=== PATIENT | male | born 1990 | race Caucasian/White ===

== ENCOUNTER 2018-02-09 08:58 | Emergency (ER) | payer SELFPAY ==
[~2018-02-09] VITALS: Ht 167.6 cm; Wt 108.4 kg
[2018-02-09 09:02] VITALS: BP 161/98
[2018-02-09 09:26] VITALS: BP 118/87
== END 2018-02-09 09:26 | disposition home or self-care (01) ==
LOC: MED 08:58
DX: M54.5 Low back pain (principal)
CPT/HCPCS: 81002; 99282